=== PATIENT | female | born 1990 | race Caucasian/White ===

== ENCOUNTER 2022-05-09 10:12 | Outpatient (CLI) | payer BC, SELFPAY ==
--- NOTE | 2022-05-09 10:00 | CRLHL7_ITS ---
For Patients: As a result of the Century Cures Act, medical imaging exams and procedure reports are released immediately into your electronic medical record. You may view this report before your referring provider. If you have questions, please contact your health care provider. INDICATION: Right upper quadrant pain, hepatomegaly, postprandial pain TECHNIQUE: CT abdomen and pelvis acquired with IV contrast. COMPARISON: Better bladder ultrasound 04/23/2022 FINDINGS: Lower chest: Unremarkable. Liver: Hepatomegaly measures 24.3 centimeters cranial caudal. Severe low-attenuation of the liver. Spleen: Unremarkable. Pancreas: Unremarkable. Gallbladder and bile ducts: Unremarkable. Kidneys: Unremarkable. Adrenal glands: Unremarkable. GI tract: Unremarkable. Appendix is normal. Vascular structures: Negative. No sign of aneurysm. Lymph nodes: Unremarkable. Miscellaneous: Unremarkable. No free air or significant free fluid. Pelvic Organs: Unremarkable. IUD appears in appropriate position. Bones: Unremarkable for age. IMPRESSION: Hepatomegaly with severe fatty infiltration. Please note that all CT scans at this facility use dose modulation, iterative reconstruction, and/or weight-based dosing when appropriate to reduce radiation dose to as low as reasonably achievable. Dictated by Odessa Lau MD @ 05/10/2022 2:33:15 PM (Electronically Signed)
[2022-05-09 10:47] LABS: Creatinine* 0.7 mg/dL (0.5-1.5); Estimated Glomerular Filt Rate 117.77
== END 2022-05-09 10:13 | disposition home or self-care (01) ==
LOC: CT 10:14
PROVIDERS: PCP Family Medicine; Visit Provider Family Medicine
DX: R10.11 Right upper quadrant pain (principal); K76.0 Fatty (change of) liver, not elsewhere classified
CPT/HCPCS: 36415; 74177; 82565; Q9967

== ENCOUNTER 2022-06-14 19:43 | Outpatient (CLI) | payer BC, SELFPAY | END 2022-06-14 19:44 | disposition home or self-care (01) | LOC: AMB 06-29 13:36 | PROVIDERS: PCP Family Medicine; Visit Provider Emergency Medicine Emergency Medical Services | DX: R29.810 Facial weakness (principal); G43.909 Migraine, unspecified, not intractable, without status migrainosus; M62.81 Muscle weakness (generalized) | CPT/HCPCS: A0425; A0427 ==